=== PATIENT | female | born 1950 | race Caucasian/White ===

== ENCOUNTER 2022-01-29 17:22 | Observation (INO) | payer BC, MEDICARE, SELFPAY ==
[~2022-01-29 17:22] MED LIST: Iopamidol 370 76% 100 ML VIAL ONE
[2022-01-29 19:00] LABS: #Basophils 0.1 10x3/uL (0.0-0.2); #Eosinphils 0.1 10x3/uL (0.0-0.5); #Monocytes 0.5 10x3/uL (0.0-1.1); #Neutrophils 6.8 10x3/uL (1.5-8.4); %Basophils 0.8 % (0.0-2.0); %Lymphocytes 10.7 % (18.0-47.0); %Monocytes 5.9 % (0.0-10.0); %Neutrophils 81.4 % (40.0-75.0); Hemoglobin 12.8 g/dL (12.0-15.5); Mean Corpuscular HGB CONC 33.3 g/dL (32.0-36.0); Mean Corpuscular Hemoglobin 31.4 pg (27.0-33.0); Mean Corpuscular Volume 94.1 fl (81.6-98.3); Mean Platelet Volume 10.6 fl (7.4-10.4); Platelet Count 239 10x3/uL (150-450); RBC Distribution Width 15.4 % (11.5-14.5); Red Blood Cell (RBC) Count 4.08 10x6/uL (3.90-5.03); White Blood Cell (WBC) Count 8.4 10x3/uL (3.5-10.5)
[2022-01-29 19:15] LABS: ALT (SGPT) 42 U/L (8-55); AST (SGOT) 51 U/L (5-34); Albumin 4.6 g/dL (3.4-4.8); Alkaline Phosphatase 78 U/L (40-110); Anion Gap 17 mmol/L (10-20); BUN (Urea Nitrogen) 30 mg/dL (9.8-20.1); Bilirubin, Total 0.5 mg/dL (0.2-1.2); Calc. Creatinine Clearance 0 mL/min (70-130); Calcium 10.3 mg/dL (7.8-10.44); Carbon Dioxide 26 mmol/L (23-31); Chloride 102 mmol/L (98-107); Estimated GFR 36; Globulin 2.9 g/dL (2.4-3.5); Glucose 116 mg/dL (83-110); Potassium 5.3 mmol/L (3.5-5.1); Protein, Total 7.5 g/dL (5.8-8.1); Sodium 140 mmol/L (136-145)
[2022-01-29 19:37] LABS: Bilirubin Neg (Negative); Blood, Urine 10 (Negative); Clarity Slightly Cloudy (Clear); Glucose, Urine (Dipstick) Normal (Negative); Ketone, Urine 5 mg/dL (Negative); Leukocyte 500 (Negative); Nitrite Negative (Negative); Protein, Urine (Dipstick) 30 mg/dl (Neg-Trace); Urobilinogen Normal mg/dL (Less than 2); pH, Urine 6.5 (5.0-9.0)
[2022-01-29 19:49] LABS: Bacteria/HPF Rare-Few HPF (None Seen); RBC/HPF 0-3 HPF (0-3); Squamous Epithelial 0-3 HPF (0-3); Transitional Epithelial 0-3 HPF (None Seen)
[2022-01-29] MEDS ORDERED: Lidocaine/Transparent Dressing 1 EACH KIT ONE (19:56)
[2022-01-29] MEDS ORDERED: cefTRIAXone\\ROCEPHIN 1 GM VIAL ONE (22:06)
[2022-01-29] MEDS ORDERED: Acetaminophen 325 MG TAB PO PRN (22:58)
[2022-01-29] MEDS ORDERED: Ondansetron ODT 4 MG TAB PO PRN (22:58)
[2022-01-29] MEDS ORDERED: Senokot S 8.6-50 MG TAB PO PRN (22:58)
[2022-01-29] MEDS ORDERED: hydrOXYzine 10 MG TAB PO PRN (23:03)
[2022-01-29] MEDS ORDERED: Lactated Ringer's 1,000 ML IV SCH (23:15)
[2022-01-29 23:44] VITALS: BMI 30.8
[2022-01-30 00:59] LABS: Troponin I 0.035 ng/mL (< 0.028)
[2022-01-30 04:22] LABS: Troponin I 0.032 ng/mL (< 0.028)
[2022-01-30 05:00] LABS: #Eosinphils 0.1 10x3/uL (0.0-0.5); #Monocytes 0.4 10x3/uL (0.0-1.1); #Neutrophils 3.7 10x3/uL (1.5-8.4); %Basophils 0.6 % (0.0-2.0); %Eosinophils 1.5 % (0.0-6.0); %Lymphocytes 20.3 % (18.0-47.0); %Monocytes 6.7 % (0.0-10.0); %Neutrophils 70.5 % (40.0-75.0); Hemoglobin 10.8 g/dL (12.0-15.5); Mean Corpuscular HGB CONC 33.8 g/dL (32.0-36.0); Mean Corpuscular Volume 94.7 fl (81.6-98.3); Mean Platelet Volume 10.4 fl (7.4-10.4); Platelet Count 187 10x3/uL (150-450); RBC Distribution Width 15.1 % (11.5-14.5); Red Blood Cell (RBC) Count 3.38 10x6/uL (3.90-5.03); White Blood Cell (WBC) Count 5.2 10x3/uL (3.5-10.5)
[2022-01-30 05:22] LABS: Anion Gap 14 mmol/L (10-20); BUN (Urea Nitrogen) 21 mg/dL (9.8-20.1); Calc. Creatinine Clearance 0 mL/min (70-130); Calcium 8.9 mg/dL (7.8-10.44); Carbon Dioxide 22 mmol/L (23-31); Chloride 108 mmol/L (98-107); Estimated GFR 73; Glucose 101 mg/dL (83-110); Potassium 3.8 mmol/L (3.5-5.1); Sodium 140 mmol/L (136-145)
[2022-01-30] MEDS ORDERED: hydrOXYzine 10 MG TAB PO PRN (08:31)
[2022-01-30] MEDS: Heparin 5,000 UNITS/ML VIAL SC SCH ×2 (08:53→14:43)
[2022-01-30] MEDS: Folic Acid 1 MG TAB PO SCH ×2 (08:53→14:43)
[2022-01-30] MEDS ORDERED: Amlodipine 10 MG TAB PO SCH ×2 (09:00)
[2022-01-30] MEDS ORDERED: Losartan Potassium 50 MG TAB PO SCH (09:00)
[2022-01-30] MEDS ORDERED: Hydrochlorothiazide 25 MG TAB PO SCH (09:00)
[2022-01-30] MEDS ORDERED: Famotidine 20 MG TAB PO SCH (09:00)
[2022-01-30] MEDS ORDERED: Montelukast Sodium 10 mg Tablet PO SCH ×3 (09:00)
[2022-01-30 13:12] VITALS: BP 128/61; TEMP 97.4
== END 2022-01-30 15:10 | disposition home or self-care (01) ==
LOC: CSHERS 17:22 → CSHTELE 22:01
PROVIDERS: ADMIT Student in an Organized Health Care Education/Training Program; ATTEND Internal Medicine
DX: R55 Syncope and collapse (principal); S01.01XA Laceration without foreign body of scalp, initial encounter; R07.9 Chest pain, unspecified; I10 Essential (primary) hypertension; E87.5 Hyperkalemia; K21.9 Gastro-esophageal reflux disease without esophagitis; N17.9 Acute kidney failure, unspecified; I44.7 Left bundle-branch block, unspecified; Z85.42 Personal history of malignant neoplasm of other parts of uterus; Z79.899 Other long term (current) drug therapy; Z88.8 Allergy status to other drugs, medicaments and biological substances; Z90.710 Acquired absence of both cervix and uterus; W19.XXXA Unspecified fall, initial encounter
CPT/HCPCS: 12002; 70450; 71045; 71275; 80048; 84484 ×3; 85025; 85379; 93005; 93880; 96372; 96374; 97116; 99285; G0378 ×2; 36415; 80053; 81003; 81015; 84443; J0696; J1644; J7120; Q9967